=== PATIENT | male | born 1950 | race African-American/Black ===

== ENCOUNTER 2023-02-14 13:27 | Inpatient (IN) | payer OTHER ==
[~2023-02-14] VITALS: Ht 152.4 cm; Wt 91.6 kg
[~2023-02-14 13:27] MED LIST: ATORVASTATIN CA40 MG PO; LOSARTAN POTAS100 MG PO; METOPROLOL SUCC50 MG PO; TAMSULOSIN HCL0.4 MG PO; XARELTO20 MG PO
[2023-02-14] MEDS ORDERED: JARDIANCE10 MG PO (13:45)
[2023-02-14] MEDS ORDERED: ELIQUIS5 MG PO (13:45)
[2023-02-14] MEDS ORDERED: TAMS0.4C PO (13:46)
[2023-02-14 14:42] LABS: HEMATOCRIT 42.1 % (39.0-48.0); HEMOGLOBIN 14.5 g/dL (13-16.00); MEAN CELL VOLUME 95.5 fL (80.0-100.00); MEAN CORPUSCULAR HEMOGLOBIN 32.8 pg (27.00-32.0); MEAN CORPUSCULAR HGB CONC 34.3 g/dl (32.0-36.0); PLATELET COUNT 358 K/uL (150-450); RED BLOOD COUNT 4.41 M/uL (4.00-6.00); RED CELL DISTRIBUTION WIDTH 14.1 % (11.5-14.5)
[2023-02-14 15:04] LABS: ALBUMIN 3.4 gm/dL (3.4-5.0); BILIRUBIN TOTAL 0.74 mg/dL (0.3-1.2); CALCIUM 9.2 mg/dL (8.5-10.1); CREATININE SERUM 1.43 mg/dL (0.70-1.30); GFR 48.61; GLOBULINA 2.9 G/DL (2.4-3.5); POTASSIUM 3.76 mEq/L (3.5-5.1); TOTAL PROTEIN 6.3 gm/dL (6.4-8.2)
[2023-02-14 15:07] LABS: INR 1.17; PROTHROMBIN TIME 12.1 SECONDS (9.0-11.5)
[2023-02-14 16:18] LABS: PARTIAL THROMBOPLASTIN TIME 28.5 SECONDS (22.0-34.0)
[2023-02-14 17:00] LABS: ABG PH 7.441 (7.35-7.45); ABG PO2 74.8 mmHg (80-100); ABG pCO2 37.3 mmHg (35-45); BICARBONATE 24.8 mmol/l (23-25); SaO2 95.5 %
[2023-02-14 17:01] LABS: allen test SATISFACTORY; o2 21 %; puncture site RADIAL RIGHT
[2023-02-14 19:06] LABS: URINE APPEARANCE Clear; URINE BILIRRUBIN Negative (NEGATIVE); URINE BLOOD Trace; URINE COLOR Yellow; URINE LEUKOCYTE Negative; URINE NITRATE Negative; URINE PROTEIN Negative (NEGATIVE); URINE UROBILINOGEN 0.2 E.U./dl
[2023-02-14 19:10] LABS: URINE EPITHELIAL CELLS 3.2 uL (0.0-38.8); URINE RBC 4.3 uL (0.0-20.8); URINE WBC 4.7 uL (0.0-23.2)
[2023-02-14 19:15] LABS: URINE GLUCOSE >=1000 MG/DL (NEGATIVE)
[2023-02-14 19:52] LABS: MAGNESIUM 2.2 mg/dL (1.8-2.4); PHOSPHOROUS 4.5 mg/dL (2.5-4.9)
[2023-02-15 13:17] LABS: CALCIUM 8.8 mg/dL (8.5-10.1); CREATININE SERUM 1.22 mg/dL (0.70-1.30); GFR 58.39; POTASSIUM 3.44 mEq/L (3.5-5.1)
[2023-02-16 07:34] LABS: CALCIUM 9.3 mg/dL (8.5-10.1); CREATININE SERUM 1.35 mg/dL (0.70-1.30); GFR 51.95; POTASSIUM 3.4 mEq/L (3.5-5.1)
[2023-02-17 06:11] LABS: HEMATOCRIT 43.9 % (39.0-48.0); HEMOGLOBIN 15.4 g/dL (13-16.00); MEAN CELL VOLUME 93.3 fL (80.0-100.00); MEAN CORPUSCULAR HEMOGLOBIN 32.8 pg (27.00-32.0); MEAN CORPUSCULAR HGB CONC 35.2 g/dl (32.0-36.0); PLATELET COUNT 394 K/uL (150-450); RED CELL DISTRIBUTION WIDTH 13.9 % (11.5-14.5)
[2023-02-17 06:37] LABS: ALBUMIN 3.3 gm/dL (3.4-5.0); CALCIUM 9.3 mg/dL (8.5-10.1); CREATININE SERUM 1.34 mg/dL (0.70-1.30); GFR 52.4; POTASSIUM 3.13 mEq/L (3.5-5.1)
== END 2023-02-17 11:18 | disposition designated cancer center or children's hospital (05) | DRG 291 ==
LOC: ER 13:28 → ICU-2 18:09 → ICU 02-15 19:39
PROVIDERS: General Practice; Internal Medicine Nephrology; ADMIT Internal Medicine; ATTEND Internal Medicine
PROC: B24BZZZ Ultrasonography of Heart with Aorta (ICD-10-PCS; principal; 2023-02-14)
PROC: BW21ZZZ Computerized Tomography (CT Scan) of Abdomen and Pelvis (ICD-10-PCS; 2023-02-14)
DX: I13.0 Hypertensive heart and chronic kidney disease with heart failure and stage 1 through stage 4 chronic kidney disease, or unspecified chronic kidney disease (principal); J18.9 Pneumonia, unspecified organism; I48.92 Unspecified atrial flutter; N17.9 Acute kidney failure, unspecified; I50.1 Left ventricular failure, unspecified; I50.9 Heart failure, unspecified; I48.91 Unspecified atrial fibrillation; E11.22 Type 2 diabetes mellitus with diabetic chronic kidney disease; N18.9 Chronic kidney disease, unspecified; Z79.4 Long term (current) use of insulin; G47.33 Obstructive sleep apnea (adult) (pediatric); I25.10 Atherosclerotic heart disease of native coronary artery without angina pectoris; E87.6 Hypokalemia; E78.5 Hyperlipidemia, unspecified